=== PATIENT | female | born 1960 | race Caucasian/White ===

== ENCOUNTER 2017-09-21 11:30 | Observation (INO) | payer OTHER ==
[~2017-09-21] VITALS: Ht 160 cm; Wt 62.4 kg
[2017-09-21 11:35] VITALS: BP 143/68; PULSE 106; RESP 16; TEMP 98.7; O2SAT 95
--- NOTE | 2017-09-21 11:45 | PD ---
HPI Chief Complaint: GI Complaint Time Seen by Provider: 11:44 Travel History International Travel<30 days: No Contact w/Intl Traveler<30days: No Traveled to known affect area: No History of Present Illness HPI 57 YO F with PMH of COPD, current smoker presents the ED for evaluation of 2 day history of frankly bloody stools. Patient endorses one episode of hematemesis yesterday. She denies fever, chills dysuria, hematuria. She endorses chronic upper quadrant abdominal pain. She endorses history of umbilical hernia repair and hysterectomy. She endorses daily alcohol use. She estimates "a few beers" daily. She has never had a screening colonoscopy. States that she is "just getting over bronchitis." Patient denies chest pain, palpitations, shortness of breath. She endorses occasional dizziness, worsened by bending over. States these episodes last a few seconds before resolving. She does not take blood thinners. PFSH Past Medical History Respiratory: Yes ?: Not Social History Tobacco Use: Yes Allergies-Medications (Allergen,Severity, Reaction): Coded Allergies: No Known Allergies (Unverified , 09/21/17) Review of Systems Except as stated in HPI: all other systems reviewed are Neg Physical Exam Narrative GENERAL: Well-nourished, well-developed white female no acute distress. SKIN: Focused skin assessment warm/dry. HEAD: Normocephalic. EYES: No scleral icterus. No injection or drainage. NECK: Supple, trachea midline. No JVD or lymphadenopathy. CARDIOVASCULAR: Regular rate and rhythm without murmurs, gallops, or rubs. RESPIRATORY: Breath sounds equal bilaterally. No accessory muscle use. GASTROINTESTINAL: Abdomen soft, nondistended. Tender to palpation in the right and left upper quadrants. Active bowel sounds. RECTAL EXAM: No masses or tenderness, stool is dark, frankly bloody. Guaiac positive. MUSCULOSKELETAL: No cyanosis, or edema. BACK: Nontender without obvious deformity. No CVA tenderness. Data Data Last Documented VS Vital Signs Date Time Temp Pulse Resp B/P (MAP) Pulse Ox O2 Delivery O2 Flow Rate FiO2 09/21/17 12:23 96 Room Air 09/21/17 11:35 98.7 106 16 143/68 (93) Orders Orders Complete Blood Count With Diff (09/21/17 11:45) Comprehensive Metabolic Panel (09/21/17 11:45) Lipase (09/21/17 11:45) Ammonia (09/21/17 11:45) Prothrombin Time / Inr (Pt) (09/21/17 11:45) Act Partial Throm Time (Ptt) (09/21/17 11:45) Alcohol (Ethanol) (09/21/17 11:45) Urinalysis - C+S If Indicated (09/21/17 11:45) Type And Screen (09/21/17 11:45) Ecg Monitoring (09/21/17 11:45) Iv Access Insert/Monitor (09/21/17 11:45) Oximetry (09/21/17 11:45) Sodium Chlorid 0.9%... W/Octreotide Inj (09/21/17 12:07) Sodium Chloride 0.9... W/Pantoprazole In (09/21/17 12:07) Sodium Chlor 0.9% 1000 Ml Inj (Ns 1000 M (09/21/17 12:30) Potassium Chloride (Kcl) (09/21/17 13:30) Consult Gastroenterology (09/21/17 ) (Hub Use Only)Inp Phy Cons/Ref (09/21/17 ) Admit Order (Ed Use Only) (09/21/17 14:17) Admit To Inpatient (09/21/17 ) Vital Signs (Adult) PRETTY.Q4H (09/21/17 14:16) Activity Oob With Assistance (09/21/17 14:16) Inpatient Certification (09/21/17 ) Labs Laboratory Tests Test 09/21/17 12:10 09/21/17 12:12 09/21/17 13:00 Ammonia 24 MCMOL/L White Blood Count 7.6 TH/MM3 Red Blood Count 4.12 MIL/MM3 Hemoglobin 13.5 GM/DL Hematocrit 38.2 % Mean Corpuscular Volume 92.8 FL Mean Corpuscular Hemoglobin 32.7 PG Mean Corpuscular Hemoglobin Concent 35.2 % Red Cell Distribution Width 13.0 % Platelet Count 271 TH/MM3 Mean Platelet Volume 7.1 FL Neutrophils (%) (Auto) 51.6 % Lymphocytes (%) (Auto) 40.0 % Monocytes (%) (Auto) 7.4 % Eosinophils (%) (Auto) 0.6 % Basophils (%) (Auto) 0.4 % Neutrophils # (Auto) 3.9 TH/MM3 Lymphocytes # (Auto) 3.0 TH/MM3 Monocytes # (Auto) 0.6 TH/MM3 Eosinophils # (Auto) 0.0 TH/MM3 Basophils # (Auto) 0.0 TH/MM3 CBC Comment DIFF FINAL Differential Comment Prothrombin Time 10.7 SEC Prothromb Time International Ratio 1.1 RATIO Activated Partial Thromboplast Time 23.3 SEC Blood Urea Nitrogen 15 MG/DL Creatinine 0.55 MG/DL Random Glucose 118 MG/DL Total Protein 7.3 GM/DL Albumin 3.8 GM/DL Calcium Level 8.9 MG/DL Alkaline Phosphatase 65 U/L Aspartate Amino Transf (AST/SGOT) 15 U/L Alanine Aminotransferase (ALT/SGPT) 23 U/L Total Bilirubin 0.5 MG/DL Sodium Level 138 MEQ/L Potassium Level 3.4 MEQ/L Chloride Level 100 MEQ/L Carbon Dioxide Level 25.2 MEQ/L Anion Gap 13 MEQ/L Estimat Glomerular Filtration Rate 113 ML/MIN Lipase 96 U/L Ethyl Alcohol Level LESS THAN 3 MG/DL Urine Color YELLOW Urine Turbidity CLEAR Urine pH 5.5 Urine Specific [place] 1.036 Urine Protein TRACE mg/dL Urine Glucose (UA) NEG mg/dL Urine Ketones 10 mg/dL Urine Occult Blood NEG Urine Nitrite NEG Urine Bilirubin NEG Urine Urobilinogen 2.0 MG/DL Urine Leukocyte Esterase NEG Urine RBC 1 /hpf Urine WBC 2 /hpf Urine Squamous Epithelial Cells 2 /hpf Urine Bacteria RARE /hpf Urine Hyaline Casts 7 /lpf Microscopic Urinalysis Comment CULT NOT INDICATED MDM Medical Decision Making Medical Screen Exam Complete: Yes Emergency Medical Condition: Yes Differential Diagnosis Alcoholic gastritis versus GI bleed versus anemia versus other Narrative Course 57 YO F with PMH of COPD, current smoker presents the ED for evaluation of 2 day history of frankly bloody stools. Patient endorses one episode of hematemesis yesterday. She endorses chronic upper quadrant abdominal pain, worsened over the last couple days. She endorses daily alcohol use. She estimates "a few beers" daily. She has never had a screening colonoscopy. Does not take blood thinners. Vitals reviewed. On physical exam the patient has left upper quadrant tenderness to palpation and gino melena. Octreotide and Protonix initiated. No concerning abnormalities of CBC, CMP, coags, UA, tox screen. Spoke with Dr. Pinto who recommends admission and will see the patient later today. I spoke with who agrees to accept the patient to the medicine service. Please see GI and medicine notes for disposition. HemaPrompt Point of Care Internal Pos. & Neg. Controls: Passed Fecal Specimen Occult Blood: Positive Diagnosis Primary Impression: GI bleed Qualified Codes: K92.2 - Gastrointestinal hemorrhage, unspecified Keiry Bales Sep 21, 2017 11:45
[2017-09-21] MEDS ORDERED: PANTOPRAZOLE INJ 80 MG in SODIUM CHLORIDE 0.9% INJ 35 ML IV ONE (12:07)
[2017-09-21] MEDS ORDERED: OCTREOTIDE INJ 500 MCG in SODIUM CHLORID 0.9% 500 ML INJ 500 ML IV SCH (12:07)
[2017-09-21 12:23] VITALS: O2SAT 96
[2017-09-21] MEDS ORDERED: SODIUM CHLOR 0.9% 1000 ML INJ 1,000 ML IV ONE (12:30)
[2017-09-21 12:45] LABS: AUTOMATED NEUTROPHIL # 3.9 TH/MM3 (1.8-7.7); BASOPHIL % 0.4 % (0.0-2.0); EOSINOPHIL % 0.6 % (0.0-4.0); HEMATOCRIT 38.2 % (35.0-46.0); HEMOGLOBIN 13.5 GM/DL (11.6-15.3); MEAN CELL VOLUME 92.8 FL (80.0-100.0); MEAN CORPUSCULAR HEMOGLOBIN 32.7 PG (27.0-34.0); MEAN CORPUSCULAR HGB CONC 35.2 % (32.0-36.0); MEAN PLATELET VOLUME 7.1 FL (7.0-11.0); MONO % 7.4 % (0.0-8.0); MONOCYTE # 0.6 TH/MM3 (0-0.9); NEUT % 51.6 % (16.0-70.0); PLATELET COUNT 271 TH/MM3 (150-450); RED BLOOD COUNT 4.12 MIL/MM3 (4.00-5.30); WHITE BLOOD COUNT 7.6 TH/MM3 (4.0-11.0)
[2017-09-21 12:53] LABS: INTERNATIONAL NORMALIZED RATIO 1.1 RATIO; PROTHROMBIN TIME - PATIENT 10.7 SEC (9.8-11.6)
[2017-09-21 13:00] LABS: ALBUMIN 3.8 GM/DL (3.4-5.0); ALT (GPT) 23 U/L (10-53); AST (GOT) 15 U/L (15-37); BICARBONATE 25.2 MEQ/L (21.0-32.0); BLOOD UREA NITROGEN 15 MG/DL (7-18); CALCIUM 8.9 MG/DL (8.5-10.1); CHLORIDE 100 MEQ/L (98-107); CREATININE 0.55 MG/DL (0.50-1.00); GLOMERULAR FILTRATION RATE 113 ML/MIN (>89); GLUCOSE,RANDOM 118 MG/DL (74-106); SODIUM (NA) 138 MEQ/L (136-145)
[2017-09-21 13:02] LABS: ALKALINE PHOSPHATASE 65 U/L (45-117); TOTAL BILIRUBIN ADULT 0.5 MG/DL (0.2-1.0); TOTAL PROTEIN 7.3 GM/DL (6.4-8.2)
[2017-09-21 13:19] LABS: BACTERIA, URINE RARE /hpf; BLOOD, URINE NEG (NEG); GLUCOSE,URINE NEG (NEG); HYALINE CAST, URINE 7 /lpf (RARE); KETONE, URINE 10 mg/dL (NEG); NITRITE,URINE NEG (NEG); PH, URINE 5.5 (5.0-8.5); SQUAMOUS EPITHELIAL CELL URINE 2 /hpf (0-5); URINE COLOR YELLOW (YELLW/STRAW); URINE LEUKOCYTE ESTERASE NEG (NEG)
[2017-09-21] MEDS ORDERED: POTASSIUM CHLORIDE 20 MEQ CONTROLLED RELEASE TAB PO ONE (13:30)
[2017-09-21 13:31] LABS: BILIRUBIN, URINE NEG (NEG)
--- NOTE | 2017-09-21 14:50 | HHI.HP ---
[facility] Service [facility] Primary Care Physician Willa Singh MD Admission Diagnosis GI bleed Diagnoses: Chief Complaint: belly pain Travel History International Travel<30 Days: No Contact w/Intl Traveler <30 Da: No Traveled to Known Affected Are: No History of Present Illness 57 y/o WF who was in usual state of health until about 1 week ago when she began experiencing epigastric abdominal pain. Patient initially thought that her epigastric pain was due to bronchitis associated coughing, however her coughing subsided but her epigastric pain persisted. This was associated with intermittent nausea and very sporadic vomiting (only 2 episodes over the last week). She reports her emesis being brown. She ultimately decided come to the emergency department after noticing bright red blood per rectum since last night which she describes being in the volume of cups. She had seen her PCP a few days prior to this and was ordered some outside blood work imaging, 1 of them being what appears to be an abdominal aortic ultrasound. Patient denies having any dysuria. When I asked the patient in detail how often she takes NSAID medications, she denies taking any within the last 2-3 weeks. Says she occasionally will take an Aleve or ibuprofen. Denies ever being diagnosed with an H pylori infection or any GI bleed in the past. Review of Systems Except as stated in HPI: all other systems reviewed are Neg Past Family Social History Past Medical History endometriosis fatty mass tumor resected off of right hip Past Surgical History hysterectomy Allergies: Coded Allergies: No Known Allergies (Unverified , 09/21/17) Family History breast CA w/ mets in mother Social History lifelong hx of smoking, drinks up to a few beers during a sitting, drinks otherwise daily 1 beer Physical Exam Vital Signs Vital Signs Date Time Temp Pulse Resp B/P (MAP) Pulse Ox O2 Delivery O2 Flow Rate FiO2 09/21/17 12:23 96 Room Air 09/21/17 11:35 98.7 106 16 143/68 (93) 95 Physical Exam VS: afebrile GENERAL: Sitting up in bed awake alert, no acute distress SKIN: Warm and dry. EYES: No scleral icterus. No injection or drainage. ENT: No nasal bleeding or discharge. Mucous membranes pink and moist. CARDIOVASCULAR: Regular rate and rhythm. no murmurs RESPIRATORY: No accessory muscle use. Clear to auscultation. Breath sounds equal bilaterally. GASTROINTESTINAL: Abdomen soft, mildly tender epigastrium, nondistended Extremities: No clubbing, cyanosis, or edema. No obvious deformities. MUSCULOSKELETAL: adequate muscle bulk and tone for age and habitus NEUROLOGICAL: Awake and alert. No obvious cranial nerve deficits. No facial droop nor slurred speech noted. PSYCHIATRIC: Appropriate mood and affect; insight and judgment normal. Laboratory Laboratory Tests Test 09/21/17 12:10 09/21/17 12:12 09/21/17 13:00 Ammonia 24 White Blood Count 7.6 Red Blood Count 4.12 Hemoglobin 13.5 Hematocrit 38.2 Mean Corpuscular Volume 92.8 Mean Corpuscular Hemoglobin 32.7 Mean Corpuscular Hemoglobin Concent 35.2 Red Cell Distribution Width 13.0 Platelet Count 271 Mean Platelet Volume 7.1 Neutrophils (%) (Auto) 51.6 Lymphocytes (%) (Auto) 40.0 Monocytes (%) (Auto) 7.4 Eosinophils (%) (Auto) 0.6 Basophils (%) (Auto) 0.4 Neutrophils # (Auto) 3.9 Lymphocytes # (Auto) 3.0 Monocytes # (Auto) 0.6 Eosinophils # (Auto) 0.0 Basophils # (Auto) 0.0 CBC Comment DIFF FINAL Differential Comment Prothrombin Time 10.7 Prothromb Time International Ratio 1.1 Activated Partial Thromboplast Time 23.3 Blood Urea Nitrogen 15 Creatinine 0.55 Random Glucose 118 Total Protein 7.3 Albumin 3.8 Calcium Level 8.9 Alkaline Phosphatase 65 Aspartate Amino Transf (AST/SGOT) 15 Alanine Aminotransferase (ALT/SGPT) 23 Total Bilirubin 0.5 Sodium Level 138 Potassium Level 3.4 Chloride Level 100 Carbon Dioxide Level 25.2 Anion Gap 13 Estimat Glomerular Filtration Rate 113 Lipase 96 Ethyl Alcohol Level LESS THAN 3 Urine Color YELLOW Urine Turbidity CLEAR Urine pH 5.5 Urine Specific [place] 1.036 Urine Protein TRACE Urine Glucose (UA) NEG Urine Ketones 10 Urine Occult Blood NEG Urine Nitrite NEG Urine Bilirubin NEG Urine Urobilinogen 2.0 Urine Leukocyte Esterase NEG Urine RBC 1 Urine WBC 2 Urine Squamous Epithelial Cells 2 Urine Bacteria RARE Urine Hyaline Casts 7 Microscopic Urinalysis Comment CULT NOT INDICATED Result Diagram: 09/21/17 1212 09/21/17 1212 Caprini VTE Risk Assessment Caprini VTE Risk Assessment: Mod/High Risk (score >= 2) VTE Pharm Contraindication: Active bleeding Caprini Risk Assessment Model Point Value = 1 Point Value = 2 Point Value = 3 Point Value = 5 Age 41-60 Minor surgery BMI > 25 kg/m2 Swollen legs Varicose veins or History of unexplained or recurrent spontaneous Oral contraceptives or hormone replacement Sepsis (< 1 month) Serious lung disease, including pneumonia (< 1 month) Abnormal pulmonary function Acute myocardial infarction Congestive heart failure (< 1 month) History of inflammatory bowel disease Medical patient at bed rest Age 61-74 Arthroscopic surgery Major open surgery (> 45 min) Laparoscopic surgery (> 45 min) Malignancy Confined to bed (> 72 hours) Immobilizing plaster cast Central venous access Age >= 75 History of VTE Family history of VTE Factor V Leiden Prothrombin [id number] Lupus anticoagulant Anticardiolipin antibodies Elevated serum homocysteine Heparin-induced thrombocytopenia Other congenital or acquired thrombophilia Stroke (< 1 month) Elective arthroplasty Hip, pelvis, or leg fracture Acute spinal cord injury (< 1 month) Prophylaxis Regimen Total Risk Factor Score Risk Level Prophylaxis Regimen 0-1 Low Early ambulation 2 Moderate Order ONE of the following: *Sequential Compression Device (SCD) *Heparin 5000 units SQ BID 3-4 Higher Order ONE of the following medications: *Heparin 5000 units SQ TID *Enoxaparin/Lovenox 40 mg SQ daily (WT < 150 kg, CrCl > 30 mL/min) *Enoxaparin/Lovenox 30 mg SQ daily (WT < 150 kg, CrCl > 10-29 mL/min) *Enoxaparin/Lovenox 30 mg SQ BID (WT < 150 kg, CrCl > 30 mL/min) AND/OR *Sequential Compression Device (SCD) 5 or more Highest Order ONE of the following medications: *Heparin 5000 units SQ TID (Preferred with Epidurals) *Enoxaparin/Lovenox 40 mg SQ daily (WT < 150 kg, CrCl > 30 mL/min) *Enoxaparin/Lovenox 30 mg SQ daily (WT < 150 kg, CrCl > 10-29 mL/min) *Enoxaparin/Lovenox 30 mg SQ BID (WT < 150 kg, CrCl > 30 mL/min) AND *Sequential Compression Device (SCD) Assessment and Plan Assessment and Plan N/V - coffee grounds - continue protonix drip - Unlikely alcohol drinking, stopping octreotide suspected upper GI bleed - BRBPR - melena - protonix - cbc in am - GI plans for EGD and colonoscopy -Etiology includes either PUD from H pylori or NSAIDs or idiopathic scds Physician Certification 2 Midnight Certification Type: Admission for Inpatient Services Order for Inpatient Services The services are ordered in accordance with Medicare regulations or non- Medicare payer requirements, as applicable. In the case of services not specified as inpatient-only, they are appropriately provided as inpatient services in accordance with the 2-midnight benchmark. Estimated LOS (days): 2 2 days is the estimated time the patient will need to remain in the hospital, assuming treatment plan goals are met and no additional complications. Post-Hospital Plan: Not yet determined Bob Dickey MD Sep 21, 2017 14:50
--- NOTE | 2017-09-21 14:59 | PD.CONS ---
HPI History of Present Illness This is a 57 year old F with PMH significant for COPD who presented to the ER today with complaints of bloody stools, hematemesis and abdominal pain. Pt has not been feeling well for a few weeks, was diagnosed with bronchitis approximately two weeks ago and was placed on Ampicillin and Prednisone, after finishing the medications she did not feel she was improving so she went to her doctor on Friday. was having abdominal and back pain as well as one episode of emesis last Friday, according to pt her doctor ordered an US of her aorta. She present to the hospital today because she has had two bloody BMs, first episode last night. Also had one episode of hematemesis last night. Complaining of abdominal pain, has been going on for weeks, was initially intermittent but has now become constant. Described as hunger pain, located in her upper abdomen and radiates to her back. Denies any acid reflux, heartburn, unintentional weight loss. Reports normal BMs until last night. Has never had EGD or colonoscopy. Very vague about how much alcohol she drinks, has beer multiple days in a row but then sometimes will go a week without any alcohol. Smoke a pack per day but has been trying to cut back since being sit. Denies illicit drug use. Takes Aleve but reports only about once a week. Family history significant for liver cancer, mother. (Rosalee Torres) PFSH Past Medical History COPD (Rosalee Torres) Coded Allergies: No Known Allergies (Unverified , 09/21/17) Social History ETOH- vague about how much, sometimes daily but then will go a week without any ETOH Smokes 1 PPD, cut back since being sick Denies illicit drug use (Rosalee Torres) Review of Systems Gastrointestinal: COMPLAINS OF: Abdominal pain, Bloody stools, Nausea, Vomiting , Hematemesis, DENIES: Black stools, Constipation, Difficulty Swallowing, Odynophagia, Swelling of Abdomen, Heartburn (Rosalee Torres) GI Exam Vitals I&O Vital Signs Date Time Temp Pulse Resp B/P (MAP) Pulse Ox O2 Delivery O2 Flow Rate FiO2 09/21/17 12:23 96 Room Air 09/21/17 11:35 98.7 106 16 143/68 (93) 95 Laboratory Test 09/21/17 12:10 09/21/17 12:12 09/21/17 13:00 Ammonia 24 MCMOL/L White Blood Count 7.6 TH/MM3 Red Blood Count 4.12 MIL/MM3 Hemoglobin 13.5 GM/DL Hematocrit 38.2 % Mean Corpuscular Volume 92.8 FL Mean Corpuscular Hemoglobin 32.7 PG Mean Corpuscular Hemoglobin Concent 35.2 % Red Cell Distribution Width 13.0 % Platelet Count 271 TH/MM3 Mean Platelet Volume 7.1 FL Neutrophils (%) (Auto) 51.6 % Lymphocytes (%) (Auto) 40.0 % Monocytes (%) (Auto) 7.4 % Eosinophils (%) (Auto) 0.6 % Basophils (%) (Auto) 0.4 % Neutrophils # (Auto) 3.9 TH/MM3 Lymphocytes # (Auto) 3.0 TH/MM3 Monocytes # (Auto) 0.6 TH/MM3 Eosinophils # (Auto) 0.0 TH/MM3 Basophils # (Auto) 0.0 TH/MM3 CBC Comment DIFF FINAL Differential Comment Prothrombin Time 10.7 SEC Prothromb Time International Ratio 1.1 RATIO Activated Partial Thromboplast Time 23.3 SEC Blood Urea Nitrogen 15 MG/DL Creatinine 0.55 MG/DL Random Glucose 118 MG/DL Total Protein 7.3 GM/DL Albumin 3.8 GM/DL Calcium Level 8.9 MG/DL Alkaline Phosphatase 65 U/L Aspartate Amino Transf (AST/SGOT) 15 U/L Alanine Aminotransferase (ALT/SGPT) 23 U/L Total Bilirubin 0.5 MG/DL Sodium Level 138 MEQ/L Potassium Level 3.4 MEQ/L Chloride Level 100 MEQ/L Carbon Dioxide Level 25.2 MEQ/L Anion Gap 13 MEQ/L Estimat Glomerular Filtration Rate 113 ML/MIN Lipase 96 U/L Ethyl Alcohol Level LESS THAN 3 MG/DL Urine Color YELLOW Urine Turbidity CLEAR Urine pH 5.5 Urine Specific [place] 1.036 Urine Protein TRACE mg/dL Urine Glucose (UA) NEG mg/dL Urine Ketones 10 mg/dL Urine Occult Blood NEG Urine Nitrite NEG Urine Bilirubin NEG Urine Urobilinogen 2.0 MG/DL Urine Leukocyte Esterase NEG Urine RBC 1 /hpf Urine WBC 2 /hpf Urine Squamous Epithelial Cells 2 /hpf Urine Bacteria RARE /hpf Urine Hyaline Casts 7 /lpf Microscopic Urinalysis Comment CULT NOT INDICATED Physical Examination HEENT: Normocephalic; atraumatic CHEST: Even/unlabored CARDIAC: RRR ABDOMEN: Soft, nondistended, epigastric TTP, bowel sounds active EXTREMITIES: No clubbing, cyanosis, or edema. SKIN: Normal; no rash; no jaundice. [employer]: Alert and oriented times three. (Rosalee Torres) Assessment and Plan Plan Assessment: - Rectal bleeding- began last night, has had two episodes. Denies history of GIB, not on blood thinners. Has never had colonoscopy. Of note, recently on abx for bronchitis. H/H currently stable - Hematemesis x 1 last night- reports one episode of emesis last Friday, denies blood in that emesis. Associated upper abdominal pain, initially intermittent but has become constant. Has never had EGD. ETOH- vague about how much, sometimes daily then goes a week without any alcohol. Takes NSAIDs approximately once a week. Smokes 1 PPD but has been trying to cut back Plan: EGD/colonoscopy tomorrow Obtain consent Clear liquids today Mag Citrate prep NPO after MN CT abdomen and pelvis W IV contrast C Diff stool (recent abx) Monitor H/H Protonix Further recommendations based on clinical course and results of above Pt has been seen and examined by myself and Dr. Pinto and this note is written on his behalf (Rosalee Torres) Physician Comments As above, discussed with patient the need for EGD and Colonoscopy. Will schedule that for tomorrow . Thank you for the consult (Vignesh Pinto MD) Rosalee Torres Sep 21, 2017 14:59 Vignesh Pinto MD Sep 21, 2017 23:53
[2017-09-21 15:06] VITALS: BP 116/64; PULSE 74; RESP 17; O2SAT 98
[2017-09-21] MEDS ORDERED: DIATRIZOATE MEGLUM/DIATRIZOATE SOD 9 ML CUP PO ONE (16:00)
[2017-09-21] MEDS ORDERED: MAGNESIUM CITRATE SOLN 300 ML BTL PO ONE ×2 (16:00→18:00)
[2017-09-21] MEDS ORDERED: IOHEXOL 350 MG/ML 10 ML VIAL (for RAD DIAG) IVCONTRAST ONE (18:25)
[2017-09-21] MEDS: PANTOPRAZOLE INJ 80 MG in SODIUM CHLORIDE 0.9% INJ 100 ML IV SCH (18:28)
--- NOTE | 2017-09-21 18:29 | RADRPT ---
EXAM DATE: 09/21/2017 6:19 PM EDT AGE/SEX: 57 years / Female INDICATIONS: Abdominal pain CLINICAL DATA: This is the patient's initial encounter. Patient reports that signs and symptoms have been present for 1 day and indicates a pain score of 6/10. MEDICAL/SURGICAL HISTORY: None. None. ORAL CONTRAST: Prescribed oral contrast ingested. RADIATION DOSE: 6.64 CTDI (mGy) COMPARISON: No prior [facility] exams available for comparison. TECHNIQUE: Multiple contiguous axial images were obtained through the abdomen and pelvis following b olus infusion of 95 ml Omnipaque 350 (iohexol) nonionic water-soluble contrast as a single exam dos e. Prescribed oral contrast ingested. Using automated exposure control and adjustment of the mA and/ or kV according to patient size, the radiation dose was kept as low as reasonably achievable to obtai n optimal diagnostic quality images. FINDINGS: A couple small cysts seen of the liver. No intrahepatic biliary distention but the common bile duct i s prominent, measures approximately 13 mm at the paco hepatis. This is of unclear etiology but there is some apparent vague fullness of the ampulla. The pancreatic duct is nondistended but appears to h ave a normal facet is separate from the common bile duct. I don't see a mass of the pancreas. Small a mount of sludge and/or tiny gravel-like stones in the gallbladder. No perceptible large stones. Spleen, adrenal glands and kidneys are all within normal limits. No obstruction or acute inflammatory changes are seen of the gastrointestinal tract. No lymphadenopat hy. No free fluid or free air. Abdominal aorta is atherosclerotic. No aneurysm. Visualized lung bases are clear. No acute bony abnormality demonstrated. CONCLUSION: 1. Prominent caliber common bile duct, etiology uncertain but an ampullary mass is possible. Please see above. Direct visualization with endoscopy suggested, especially if there is laboratory evidence of biliary obstruction. 2. Small sludge and/or gravel-like stones in the gallbladder. No large stone. Also no definite laurel docholithiasis. 3. Small benign cysts of the liver. 4. Atherosclerotic aorta. No aneurysm. Electronically signed by: Mars Matt MD 09/21/2017 6:28 PM EDT
[2017-09-21 20:00] VITALS: BP 113/58; PULSE 70; RESP 18; TEMP 98.1; O2SAT 97
[2017-09-22] VITALS: BP 100/51; PULSE 58; RESP 18; TEMP 97.8; O2SAT 98
[2017-09-22] MEDS: ACETAMINOPHEN/HYDROcodone 325 MG/5 MG TAB PO PRN ×4 (00:39→19:57)
[2017-09-22] MEDS ORDERED: CHLORHEXIDINE GLUCONATE 2 % 1 PACK (2 CLOTHS) TOPICAL PRN (01:00)
[2017-09-22] MEDS ORDERED: LACTATED RINGER'S 1000 ML IV PRN (01:00)
[2017-09-22] MEDS ORDERED: POVIDONE IODINE 5% (ANTISEPSIS KIT) 4 APPLICATIONS EACH NARE PRN (01:00)
[2017-09-22] MEDS: PANTOPRAZOLE INJ 80 MG in SODIUM CHLORIDE 0.9% INJ 100 ML IV SCH ×3 (04:00→16:01)
[2017-09-22 08:00] VITALS: BP 119/52; PULSE 62; RESP 19; TEMP 98.2; O2SAT 96
--- NOTE | 2017-09-22 08:28 | HHI.PR ---
Subjective Remarks In bed seen after she returned from EGD/colonoscopy No fever or chills. No more bleeding Able to keep down some food. No more nausea or vomiting/ Objective Vitals Vital Signs Date Time Temp Pulse Resp B/P (MAP) Pulse Ox O2 Delivery O2 Flow Rate FiO2 09/22/17 00:00 97.8 58 18 100/51 (67) 98 09/21/17 20:00 98.1 70 18 113/58 (76) 97 09/21/17 15:06 74 17 116/64 (81) 98 Room Air 09/21/17 12:23 96 Room Air 09/21/17 11:35 98.7 106 16 143/68 (93) 95 I/O 09/21/17 09/21/17 09/21/17 09/22/17 09/22/17 09/22/17 06:59 14:59 22:59 06:59 14:59 22:59 Intake Total 480 ml 500.5 ml Balance 480 ml 500.5 ml Intake Oral 480 ml IV Total 500.5 ml # Voids 3 # Bowel Movements 5 Result Diagram: 09/21/17 1212 09/21/17 1212 Imaging Last Impressions Abdomen/Pelvis CT 09/21/17 0000 Signed Impressions: CONCLUSION: 1. Prominent caliber common bile duct, etiology uncertain but an ampullary mas s is possible. Please see above. Direct visualization with endoscopy suggested, especially if there is laboratory evidence of biliary obstruction. 2. Small sludge and/or gravel-like stones in the gallbladder. No large stone. Also no definite choledocholithiasis. 3. Small benign cysts of the liver. 4. Atherosclerotic aorta. No aneurysm. Objective Remarks GENERAL: Sitting up in bed awake alert, no acute distress GASTROINTESTINAL: Abdomen soft, mildly tender epigastrium, nondistended Extremities: No clubbing, cyanosis, or edema. No obvious deformities. MUSCULOSKELETAL: adequate muscle bulk and tone for age and habitus NEUROLOGICAL: Awake and alert. No obvious cranial nerve deficits. No facial droop nor slurred speech noted. PSYCHIATRIC: Appropriate mood and affect; insight and judgment normal. A/P Assessment and Plan N/V coffee grounds emesis continue protonix drip Unlikely alcohol drinking, stopping octreotide Suspected upper GI bleed BRBPR Melena protonix Monitor H&H and transfuse if hemoglobin less than 7 or if the patient is symptomatic. Noted dropping hemoglobin 2 units monitored closely. GIconsulted s/p EGD and colonoscopy 09/22/17 Patient with esophagitis, gastritis, duodenal ulcer, hiatal hernia small, probably removed and sent for pathology and internal hemorrhoids. Continue PPI. Encourage fiber rich diet. Etiology includes either PUD from H pylori or NSAIDs or idiopathic DVT ppx: SCDs Discussed with the patient, nurse Discharge tomorrow morning if no more bleeding and hemoglobin stable. Mago Vega MD Sep 22, 2017 08:28
--- NOTE | 2017-09-22 08:53 | EKG ---
Date Performed: 09/22/2017 Time Performed: 07:39:32 PTAGE: 57 years EKG: SINUS BRADYCARDIA BORDERLINE ECG NO PREVIOUS TRACING DOCTOR: Sridhar Cole Interpretating Date/Time 09/22/2017 08:52:43
--- NOTE | 2017-09-22 09:51 | GIPROC ---
[facility] [address] [facility]. [facility], [address] EGD PROCEDURE REPORT EXAM DATE: 09/22/2017 PATIENT NAME: Sherry Lewis MR #: [id number] BIRTHDATE: 1960 ATTENDING: Vignesh Pinto MD ORDER #: [id number] TAX ASSESSOR: Ramiro Olsen and Sonia Macario STATUS: inpatient INDICATIONS: The patient is a 57 yr old female here for an EGD due to nausea and vomiting PROCEDURE PERFORMED: EGD w/ biopsy MEDICATIONS: None and Per Anesthesia. TOPICAL ANESTHETIC: none CONSENT: The patient understands the risks and benefits of the procedure and understands that these risks include, but are not limited to: sedation, allergic reaction, infection, perforation and/or bleeding. Alternative means of evaluation and treatment include, among others: physical exam, x-rays, and/or surgical intervention. The patient elects to proceed with this endoscopic procedure. medical equipment was checked for proper function. Hand hygiene and appropriate measures for infection prevention was taken. After the risks, benefits and alternatives of the procedure were thoroughly explained, Informed consent was verified, confirmed and timeout was successfully executed by the treatment team. The patient was anesthetized with topical anesthesia and the EC-3490Li (Pedi C) endoscope was introduced through the mouth and advanced to the first portion of the duodenum. Retroflexion was performed and was normal The gastroscope was then slowly withdrawn and removed. ESOPHAGUS: There was LA Class A esophagitis noted. A 2 cm hiatal hernia was noted. STOMACH: There was mild ulcerative gastritis at the pylorus. Multiple biopsies were performed using cold forceps. Sample sent for histology. DUODENUM: A large non-bleeding non-bleeding, round, clean-based and deep ulcer was found in the 2nd part of the duodenum. ADVERSE EVENTS: There were no complications. IMPRESSIONS: 1. There was LA Class A esophagitis noted 2. 2 cm hiatal hernia 3. There was mild gastritis at the pylorus; multiple biopsies were performed 4. Large non-bleeding ulcer was found in the 2nd part of the duodenum 5. Retroflexion was performed and was normal RECOMMENDATIONS: 1. Await biopsy results. Biopsy results will not be ready for 7-10 days. If you don't hear from us in two weeks, call our office for biopsy results. 2. Continue PPI PATIENT CONDITION: stable DISPOSITION: Observation REPEAT EXAM: NONE Vignesh Pinto MD eSigned: Vignesh Pinto MD 09/22/2017 9:50 AM cc: PATIENT NAME: Debbie Sherry M MR#: [id number]
--- NOTE | 2017-09-22 09:55 | GIPROC ---
[facility] [address] [facility]. [facility], [address] COLONOSCOPY PROCEDURE REPORT EXAM DATE: 09/22/2017 PATIENT NAME: Sherry Lewis MR #: [id number] BIRTHDATE: 1960 ENDOSCOPIST: Vignesh Pinto MD ORDER #: [id number] [employer] FEEDER: Ramiro Olsen and Sonia Macario STATUS: inpatient INDICATIONS: The patient is a 57 yr old female here for a colonoscopy due to rectal bleeding PROCEDURE PERFORMED: Colonoscopy with biopsy Colonoscopy with polypectomy MEDICATIONS: None and Per Anesthesia. PREP QUALITY: fair PREP TYPE:Magnesium Citrate ESTIMATED BLOOD LOSS: None CONSENT: The patient understands the risks and benefits of the procedure and understands that these risks include, but are not limited to: sedation, allergic reaction, infection, perforation and/or bleeding. Alternative means of evaluation and treatment include, among others: physical exam, x-rays, and/or surgical intervention. The patient elects to proceed with this endoscopic procedure. medical equipment was checked for proper function. Hand hygiene and appropriate measures for infection prevention was taken. After the risks, benefits and alternatives of the procedure were thoroughly explained, Informed consent was verified, confirmed and timeout was successfully executed by the treatment team. A digital exam revealed no abnormalities of the rectum The Pentax EC-3490Li endoscope was introduced through the anus and advanced to the cecum, which was identified by both the appendix and ileocecal valve. The instrument was then slowly withdrawn as the colon was fully examined. 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 The opening was medium sized. Two pedunculated polyps ranging between 3-5mm in size with friable surfaces were found in the sigmoid colon. A polypectomy was performed with cold forceps. The resection was complete and the polyp tissue was completely retrieved. Retroflexed views revealed internal hemorrhoids and Retroflexed views revealed medium internal hemorrhoids The scope was then completely withdrawn from the patient and the procedure terminated. PROCEDURE WITHDRAWAL TIME:10minutes ADVERSE EVENTS: There were no complications. IMPRESSIONS: 1. 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 Two pedunculated polyps ranging between 3-5mm in size were found in the sigmoid colon; polypectomy was performed with cold forceps 3. Retroflexed views revealed internal hemorrhoids RECOMMENDATIONS: 1. High fiber diet 2. Await biopsy results. Biopsy results will not be ready for 7-10 days. If you don't hear from us in two weeks, call our office for results. RECALL: Return 3 years Colonoscopy, pending biopsy results Vignesh Pinto MD eSigned: Vignesh Pinto MD 09/22/2017 9:54 AM cc:
[2017-09-22 11:44] LABS: HEMATOCRIT 32.6 % (35.0-46.0); HEMOGLOBIN 11.1 GM/DL (11.6-15.3); MEAN CELL VOLUME 94.8 FL (80.0-100.0); MEAN CORPUSCULAR HEMOGLOBIN 32.3 PG (27.0-34.0); MEAN CORPUSCULAR HGB CONC 34.1 % (32.0-36.0); MEAN PLATELET VOLUME 7.1 FL (7.0-11.0); PLATELET COUNT 261 TH/MM3 (150-450); RED BLOOD COUNT 3.44 MIL/MM3 (4.00-5.30); WHITE BLOOD COUNT 5.8 TH/MM3 (4.0-11.0)
[2017-09-22 12:00] VITALS: BP 104/48; PULSE 65; RESP 17; TEMP 98.1; O2SAT 97
[2017-09-22] MEDS ORDERED: PROPOFOL 200 MG/20 ML AMP IV ONE (12:00)
[2017-09-22] MEDS ORDERED: LIDOCAINE HCL 1% PF 5 ML SYRINGE OTHER ONE (12:00)
[2017-09-22] MEDS ORDERED: PANT40TA3 PO (14:06)
--- NOTE | 2017-09-22 14:06 | HHI.DS ---
Discharge Summary Admission Date Sep 21, 2017 at 14:18 Discharge Date: Sep 23, 2017 Admitting Diagnosis GI bleed (1) Internal hemorrhoids ICD Code: K64.8 - Other hemorrhoids (2) Esophagitis ICD Code: K20.9 - Esophagitis, unspecified (3) Duodenal ulcer ICD Code: K26.9 - Duodenal ulcer, unspecified as acute or chronic, without hemorrhage or perforation (4) Hiatal hernia ICD Code: K44.9 - Diaphragmatic hernia without obstruction or gangrene (5) Colonic polyp ICD Code: K63.5 - Polyp of colon (6) Gastritis ICD Code: K29.70 - Gastritis, unspecified, without bleeding Procedures EGD/Colonoscopy Brief History - From Admission 57 y/o WF who was in usual state of health until about 1 week ago when she began experiencing epigastric abdominal pain. Patient initially thought that her epigastric pain was due to bronchitis associated coughing, however her coughing subsided but her epigastric pain persisted. This was associated with intermittent nausea and very sporadic vomiting (only 2 episodes over the last week). She reports her emesis being brown. She ultimately decided come to the emergency department after noticing bright red blood per rectum since last night which she describes being in the volume of cups. She had seen her PCP a few days prior to this and was ordered some outside blood work imaging, 1 of them being what appears to be an abdominal aortic ultrasound. Patient denies having any dysuria. When I asked the patient in detail how often she takes NSAID medications, she denies taking any within the last 2-3 weeks. Says she occasionally will take an Aleve or ibuprofen. Denies ever being diagnosed with an H pylori infection or any GI bleed in the past. CBC/BMP: 09/22/17 1027 09/21/17 1212 Significant Findings Laboratory Tests Test 09/21/17 12:10 09/21/17 12:12 09/21/17 13:00 09/22/17 10:27 Activated Partial Thromboplast Time 23.3 SEC (24.3-30.1) Random Glucose 118 MG/DL (74-106) Potassium Level 3.4 MEQ/L (3.5-5.1) Urine Specific [place] 1.036 (1.002-1.035) Urine Ketones 10 mg/dL (NEG) Urine Bacteria RARE /hpf (NONE) Red Blood Count 3.44 MIL/MM3 (4.00-5.30) Hemoglobin 11.1 GM/DL (11.6-15.3) Hematocrit 32.6 % (35.0-46.0) Imaging Last Impressions Abdomen/Pelvis CT 09/21/17 0000 Signed Impressions: CONCLUSION: 1. Prominent caliber common bile duct, etiology uncertain but an ampullary mas s is possible. Please see above. Direct visualization with endoscopy suggested, especially if there is laboratory evidence of biliary obstruction. 2. Small sludge and/or gravel-like stones in the gallbladder. No large stone. Also no definite choledocholithiasis. 3. Small benign cysts of the liver. 4. Atherosclerotic aorta. No aneurysm. PE at Discharge GENERAL: Sitting up in bed awake alert, no acute distress GASTROINTESTINAL: Abdomen soft, mildly tender epigastrium, nondistended Extremities: No clubbing, cyanosis, or edema. No obvious deformities. MUSCULOSKELETAL: adequate muscle bulk and tone for age and habitus NEUROLOGICAL: Awake and alert. No obvious cranial nerve deficits. No facial droop nor slurred speech noted. PSYCHIATRIC: Appropriate mood and affect; insight and judgment normal. Pt update on day of discharge Feels better Has 2 BM nonbloody , normal color since yesterday HGB stable no need for transfusion Tolerates regular food. No n/v/d/c. No abd pain . Hospital Course N/V coffee grounds emesis continue protonix drip, switch to protonix PO Unlikely alcohol drinking, stop octreotide Suspected upper GI bleed BRBPR Melena protonix Monitor H&H and transfuse if hemoglobin less than 7 or if the patient is symptomatic. Noted dropping hemoglobin 2 units monitored closely. GIconsulted s/p EGD and colonoscopy 09/22/17 Patient with esophagitis, gastritis, duodenal ulcer, hiatal hernia small, probably removed and sent for pathology and internal hemorrhoids. Continue PPI. Encourage fiber rich diet. Etiology includes either PUD from H pylori or NSAIDs or idiopathic Diet modification Tobaccoism, counselled extensively. DVT ppx: SCDs Discussed with the patient, nurse Discharge home in stable condition to follow up as OP with PcP and consultants. Patient had no more bleeding and hemoglobin stable. Pt Condition on Discharge: Stable Discharge Disposition: Discharge Home Discharge Time: > 30 minutes Discharge Instructions DIET: Follow Instructions for: Heart Healthy Diet, High Fiber Diet Activities you can perform: Regular-No Restrictions Follow up Referrals: Appointment for Follow Up Gastroenterology - 2 Weeks PCP Follow-up - 2-3 Days PCP Follow-up New Medications: Pantoprazole (Pantoprazole) 40 Mg Tab 40 MG PO DAILY for Reflux, #30 TAB 0 Refills Wheat Dextrin (Benefiber) 3 Gram/3.8 Gram Powder 1 PACKET PO DAILY for Nutritional Supplement for 30 Days, #30 PACKET Mago Vega MD Sep 22, 2017 14:06
[2017-09-22] MEDS ORDERED: WHEA1POW9 PO (14:10)
[2017-09-22 16:00] VITALS: BP 96/50; PULSE 65; RESP 16; TEMP 98.5; O2SAT 95
[2017-09-22 20:00] VITALS: BP 123/58; PULSE 65; RESP 22; TEMP 98.3; O2SAT 96
[2017-09-23] VITALS: BP 92/50; PULSE 61; RESP 20; TEMP 98.3; O2SAT 96
[2017-09-23] MEDS: ACETAMINOPHEN/HYDROcodone 325 MG/5 MG TAB PO PRN ×2 (00:49→05:53)
[2017-09-23] MEDS: PANTOPRAZOLE INJ 80 MG in SODIUM CHLORIDE 0.9% INJ 100 ML IV SCH ×2 (01:54→07:59)
[2017-09-23 08:00] VITALS: BP 103/59; PULSE 57; RESP 19; TEMP 98; O2SAT 97
[2017-09-23 10:55] LABS: AUTOMATED NEUTROPHIL # 2.3 TH/MM3 (1.8-7.7); BASOPHIL % 0.3 % (0.0-2.0); EOSINOPHIL # 0.1 TH/MM3 (0-0.4); EOSINOPHIL % 2.4 % (0.0-4.0); HEMATOCRIT 29.2 % (35.0-46.0); LYMPH % 41.1 % (9.0-44.0); MEAN CELL VOLUME 95.1 FL (80.0-100.0); MEAN CORPUSCULAR HEMOGLOBIN 32.5 PG (27.0-34.0); MEAN CORPUSCULAR HGB CONC 34.2 % (32.0-36.0); MEAN PLATELET VOLUME 7.2 FL (7.0-11.0); MONO % 8.2 % (0.0-8.0); MONOCYTE # 0.4 TH/MM3 (0-0.9); PLATELET COUNT 247 TH/MM3 (150-450); RED BLOOD COUNT 3.08 MIL/MM3 (4.00-5.30); RED CELL DISTRIBUTION WIDTH 13.3 % (11.6-17.2); WHITE BLOOD COUNT 4.9 TH/MM3 (4.0-11.0)
--- NOTE | 2017-09-23 10:55 | HHI.GIFU ---
Subjective Remarks Pt resting in bed (+) 3 BMs since GI procedures yesterday, no reports of bleeding or black stools Denies nausea, vomiting Tolerating regular diet (Rosalee Torres) Objective Vitals I&O Vital Signs Date Time Temp Pulse Resp B/P (MAP) Pulse Ox O2 Delivery O2 Flow Rate FiO2 09/23/17 08:00 98.0 57 19 103/59 (74) 97 09/23/17 01:49 20 09/23/17 00:00 98.3 61 20 92/50 (64) 96 09/22/17 20:00 98.3 65 22 123/58 (79) 96 09/22/17 16:00 98.5 65 16 96/50 (65) 95 09/22/17 12:00 98.1 65 17 104/48 (66) 97 I/O 09/22/17 09/22/17 09/22/17 09/23/17 09/23/17 09/23/17 07:00 15:00 23:00 07:00 15:00 23:00 Intake Total 500.5 ml 300 ml 500 ml 460 ml Balance 500.5 ml 300 ml 500 ml 460 ml Intake Oral 500 ml 360 ml IV Total 500.5 ml 100 ml Other 300 ml # Voids 3 6 3 # Bowel Movements 5 0 0 Laboratory Laboratory Tests Test 09/23/17 09:38 Imaging Last Impressions Abdomen/Pelvis CT 09/21/17 0000 Signed Impressions: CONCLUSION: 1. Prominent caliber common bile duct, etiology uncertain but an ampullary mas s is possible. Please see above. Direct visualization with endoscopy suggested, especially if there is laboratory evidence of biliary obstruction. 2. Small sludge and/or gravel-like stones in the gallbladder. No large stone. Also no definite choledocholithiasis. 3. Small benign cysts of the liver. 4. Atherosclerotic aorta. No aneurysm. Physical Exam HEENT: Normocephalic; atraumatic CHEST: Even/unlabored CARDIAC: RRR ABDOMEN: Soft, nondistended, nontender; bowel sounds active EXTREMITIES: No clubbing, cyanosis, or edema. SKIN: Normal; no rash; no jaundice. COMMUNICATIONS EDITOR: Alert and oriented times three. (Rosalee Torres) Assessment and Plan Plan Assessment: - Rectal bleeding- began last night, has had two episodes. Denies history of GIB, not on blood thinners. Has never had colonoscopy. Of note, recently on abx for bronchitis. H/H currently stable - Hematemesis x 1 last night- reports one episode of emesis last Friday, denies blood in that emesis. Associated upper abdominal pain, initially intermittent but has become constant. Has never had EGD. ETOH- vague about how much, sometimes daily then goes a week without any alcohol. Takes NSAIDs approximately once a week. Smokes 1 PPD but has been trying to cut back (09/23) Pt has had 3 BMs since GI procedures yesterday, no reports of blood in stool. Denies nausea, vomiting, abdominal pain. Tolerating regular diet Repeat labs from today pending EGD --> Class A esophagitis, 2 cm hiatal hernia, mild gastritis at the pylorus, multiple biopsies performed, large non-bleeding ulcer was found in the 2nd part of the duodenum. 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 Two pedunculated polyps ranging between 3-5mm in size were found in the sigmoid colon; polypectomy was performed with cold forceps. Internal hemorrhoids Plan: COURTNEY EGD/colonoscopy biopsy pending Protonix If H/H is stable OK to DC from a GI standpoint Have pt follow up with GI after DC Pt has been seen and examined by myself and Dr. Pinto and this note is written on his behalf (Rosalee Torres) Physician Comments As above, biopsies to be followed as out patient. Please notify us if needed. (Vignesh Pinto MD) Rosalee Torres Sep 23, 2017 10:55 Vignesh Pinto MD Sep 23, 2017 12:28
[2017-09-23 12:00] VITALS: BP 114/60; PULSE 70; RESP 19; TEMP 98.1; O2SAT 97
== END 2017-09-23 14:10 | disposition home or self-care (01) ==
LOC: NEPC 11:30 → NEDA 14:18 → N07B 16:23
PROVIDERS: ADMIT Hospitalist; ATTEND Hospitalist
DX: K92.1 Melena (principal); J44.9 Chronic obstructive pulmonary disease, unspecified; F17.210 Nicotine dependence, cigarettes, uncomplicated; K92.0 Hematemesis; R10.10 Upper abdominal pain, unspecified; R42 Dizziness and giddiness; K64.8 Other hemorrhoids; K20.9 Esophagitis, unspecified; K26.9 Duodenal ulcer, unspecified as acute or chronic, without hemorrhage or perforation; K44.9 Diaphragmatic hernia without obstruction or gangrene; K63.5 Polyp of colon; K29.70 Gastritis, unspecified, without bleeding; K76.89 Other specified diseases of liver; I70.0 Atherosclerosis of aorta; K57.30 Diverticulosis of large intestine without perforation or abscess without bleeding; D12.5 Benign neoplasm of sigmoid colon; Z79.899 Other long term (current) drug therapy; R00.1 Bradycardia, unspecified
CPT/HCPCS: 00813; 43239; 45380; 45385; 74177; 80053; 80307; 81001; 82140; 83690; 85025; 85027; 85610; 85730; 86850; 86900; 86901; 88305; 88312; 93005; 96365; 96366; 96367; 96368; 99285; C9113; G0378; J2354; J7030; J7040; Q9963; Q9967